=== PATIENT | female | born 1945 | race Caucasian/White ===

== ENCOUNTER 2017-07-27 09:22 | Emergency (ER) | END 2017-07-27 11:30 | disposition home or self-care (01) ==

== ENCOUNTER 2018-05-28 19:53 | Inpatient (IN) | END 2018-06-02 14:20 | DRG 470 ==

== ENCOUNTER 2018-06-02 14:27 | Inpatient (IN) | END 2018-06-05 12:00 | disposition home health service (06) | DRG 560 ==